=== PATIENT | male | born 1935 | race Caucasian/White ===

== ENCOUNTER 2019-09-06 13:12 | Emergency (ER) | payer OTHER ==
[~2019-09-06] VITALS: Ht 177.8 cm; Wt 83.9 kg
[~2019-09-06 13:12] MED LIST: AMLO5 PO; GALA4 PO; LISI20 PO; METO50 PO; NIAC500 PO; OMEP20ER PO; SIMV80 PO
[2019-09-06 14:19] LABS: BASOPHILS ABSOLUTE AUTO 0.04 K/mm3 (0.00-0.23); BASOPHILS PERCENT AUTO 1 % (0-2); EOSINOPHILS ABSOLUTE AUTO 0.06 K/mm3 (0.00-0.68); EOSINOPHILS PERCENT AUTO 1 % (0-6); Hematocrit 41.2 % (37.0-53.0); Hemoglobin 13.3 g/dL (13.5-17.5); IMMATURE GRAN ABSOLUTE AUTO 0.03 K/mm3 (0.00-0.10); IMMATURE GRAN PERCENT AUTO 0 % (0-1); LYMPHOCYTES ABSOLUTE AUTO 1.79 K/mm3 (0.84-5.20); LYMPHOCYTES PERCENT AUTO 22 % (21-46); MONOCYTES ABSOLUTE AUTO 0.82 K/mm3 (0.16-1.47); MONOCYTES PERCENT AUTO 10 % (4-13); Mean Corpuscular HGB 29.7 pg (26.0-34.0); Mean Corpuscular HGB Conc 32.3 g/dL (31.5-36.5); Mean Corpuscular Volume 92 fL (80-100); Mean Platelet Volume 11.3 fL (9.1-12.4); NEUTROPHILS ABSOLUTE AUTO 5.44 K/mm3 (1.96-9.15); NEUTROPHILS PERCENT AUTO 67 % (41-73); Platelet Count 210 K/mm3 (150-400); RDW Coefficient Variation 13.4 % (11.7-14.2); RDW Standard Deviation 45.4 fL (35.1-46.3); Red Blood Cell Count 4.48 M/mm3 (4.30-5.90); White Blood Cell Count 8.18 K/mm3 (4.00-11.30)
[2019-09-06 14:39] LABS: Alanine Aminotransfer (ALT/SGP 27 U/L (12-78); Albumin, Blood 3.1 g/dL (3.4-5.0); Albumin/Globulin Ratio 1.1 (0.8-1.8); Alk Phos 61 U/L (50-136); Anion Gap 6 mmol/L (6-16); Aspartate Aminotrans (AST/SGOT 13 U/L (12-37); Bilirubin, Total 0.5 mg/dL (0.1-1.0); Blood Urea Nitrogen 20 mg/dL (8-24); Bun/Creatinine Ratio 18.5 (12.0-20.0); CO2, Blood 27 mmol/L (21-32); Calcium, Blood 8.5 mg/dL (8.5-10.1); Chloride, Blood 106 mmol/L (98-108); Creatinine, Blood 1.08 mg/dL (0.60-1.20); Globulin, Blood 2.9 g/dL (2.2-4.0); Glomerular Filtration Rate >60 (60-); Glucose, Blood 152 mg/dL (70-99); Potassium, Blood 3.3 mmol/L (3.5-5.5); Sodium, Blood 139 mmol/L (136-145)
[2019-09-06] MEDS ORDERED: ATOR80 PO (14:58)
[2019-09-06] MEDS ORDERED: HYDCHL25 PO (14:59)
[2019-09-06] MEDS ORDERED: LOSA50 PO (14:59)
== END 2019-09-06 16:53 | disposition home or self-care (01) ==
LOC: ER 13:12
PROVIDERS: Emergency Medicine
DX: R56.9 Unspecified convulsions (principal); I10 Essential (primary) hypertension; K21.9 Gastro-esophageal reflux disease without esophagitis; I25.2 Old myocardial infarction; I25.10 Atherosclerotic heart disease of native coronary artery without angina pectoris; F03.90 Unspecified dementia, unspecified severity, without behavioral disturbance, psychotic disturbance, mood disturbance, and anxiety; Z88.8 Allergy status to other drugs, medicaments and biological substances; Z79.899 Other long term (current) drug therapy
CPT/HCPCS: 70450; 71045; 80053; 85025; 93005; 93010; 99285-25

== ENCOUNTER 2020-02-29 13:28 | Inpatient (IN) | payer OTHER ==
[~2020-02-29] VITALS: Ht 167.6 cm; Wt 72.0 kg
[~2020-02-29 13:28] MED LIST changes: +ATOR80 PO; +CLOTRIMAZOLE TOP; +HYDCHL25 PO; +Hydrochlorothia25 MG PO; +LEVOFLOXACIN750 MG PO; +LOSA50 PO; +LOSARTAN POTASS50 M1 PO; +PROBIOTIC250 MG PO; +TERB250 PO
[2020-02-29 14:22] LABS: BASOPHILS PERCENT AUTO 0 % (0-2); EOSINOPHILS ABSOLUTE AUTO 0.03 K/mm3 (0.00-0.68); EOSINOPHILS PERCENT AUTO 0 % (0-6); Hematocrit 42.2 % (37.0-53.0); Hemoglobin 13.7 g/dL (13.5-17.5); IMMATURE GRAN ABSOLUTE AUTO 0.18 K/mm3 (0.00-0.10); IMMATURE GRAN PERCENT AUTO 1 % (0-1); LYMPHOCYTES ABSOLUTE AUTO 1.09 K/mm3 (0.84-5.20); LYMPHOCYTES PERCENT AUTO 5 % (21-46); MONOCYTES ABSOLUTE AUTO 1.41 K/mm3 (0.16-1.47); MONOCYTES PERCENT AUTO 6 % (4-13); Mean Corpuscular HGB 28.5 pg (26.0-34.0); Mean Corpuscular HGB Conc 32.5 g/dL (31.5-36.5); Mean Corpuscular Volume 88 fL (80-100); Mean Platelet Volume 10.2 fL (9.1-12.4); NEUTROPHILS ABSOLUTE AUTO 20.51 K/mm3 (1.96-9.15); NEUTROPHILS PERCENT AUTO 88 % (41-73); Platelet Count 244 K/mm3 (150-400); RDW Coefficient Variation 15.1 % (11.7-14.2); RDW Standard Deviation 48.8 fL (35.1-46.3); White Blood Cell Count 23.32 K/mm3 (4.00-11.30)
[2020-02-29 14:36] LABS: International Normalized Ratio 1.05; Prothrombin Time Results 11.2 Sec (9.7-11.5)
[2020-02-29 14:47] LABS: Alanine Aminotransfer (ALT/SGP 20 U/L (12-78); Albumin, Blood 2.9 g/dL (3.4-5.0); Albumin/Globulin Ratio 0.6 (0.8-1.8); Alk Phos 114 U/L (50-136); Anion Gap 12 mmol/L (6-16); Aspartate Aminotrans (AST/SGOT 18 U/L (12-37); Bilirubin, Total 1.7 mg/dL (0.1-1.0); Blood Urea Nitrogen 21 mg/dL (8-24); CO2, Blood 24 mmol/L (21-32); Calcium, Blood 9.1 mg/dL (8.5-10.1); Chloride, Blood 101 mmol/L (98-108); Creatinine, Blood 1.05 mg/dL (0.60-1.20); Globulin, Blood 4.6 g/dL (2.2-4.0); Glomerular Filtration Rate >60 (60-); Glucose, Blood 176 mg/dL (70-99); Potassium, Blood 3.4 mmol/L (3.5-5.5); Sodium, Blood 137 mmol/L (136-145); Total Protein, Blood 7.5 g/dL (6.4-8.2)
[2020-02-29 15:32] LABS: Source, Urine Catheter
[2020-02-29] MEDS ORDERED: Razadyne12 MG PO (15:36)
[2020-02-29] MEDS ORDERED: ATOR80 PO (15:36)
[2020-02-29] MEDS ORDERED: TERB250 PO (15:36)
[2020-02-29] MEDS ORDERED: AMLO5 PO (15:36)
[2020-02-29] MEDS ORDERED: TAMS.4ER PO (15:36)
[2020-02-29] MEDS ORDERED: Aspirin EC81 MG PO (15:36)
[2020-02-29 15:45] LABS: Appearance, Urine Cloudy (Clear); Bilirubin, Urine Neg (Neg); Blood, Urine 5+ (Neg); Color, Urine Yellow (P-Yellow); Glucose Qualitative, Urine Neg (Neg); Ketones, Urine Neg (Neg); Leukocyte Esterase, Urine 3+ (Neg); Nitrite, Urine Neg (Neg); Protein, Urine 3+ (Neg); Urobilinogen, Urine NORM (Normal); pH, Urine 6.5 (5.0-8.0)
[2020-02-29 15:56] LABS: Bacteria Many /hpf; Red Blood Cells, Urine TNTC /hpf (0-2); Squamous Epithelial Cells Not Seen /hpf (Few); White Blood Cells, Urine TNTC /hpf (0-5); Yeast/Fungi Urine Few /hpf
[2020-02-29] MEDS ORDERED: HYDCHL25 PO (16:59)
[2020-02-29] MEDS ORDERED: LOSA50 PO (17:05)
--- NOTE | 2020-02-29 18:38 | NUR ---
SPOKE WITH THE ER NURSE THAT STATED THAT HIS DAUGHTER WAS TAPING THE NURSES DOWN IN THE ER. SPOKE WITH DR. SHINE TO MAKE SURE HE WAS NOTIFIED OF THE PATIENT'S CURRENT LACTIC ACID LEVEL. DR. SHINE SAID CONTINUE WITH SEPSIS BOLUS AND MAKE SURE ANTIBIOTICS WERE GIVEN. PATIENT ARRIVED TO THE FLOOR.
[2020-02-29 22:37] LABS: Source, Urine Clean Catch
[2020-02-29 22:58] LABS: Appearance, Urine Cloudy (Clear); Bilirubin, Urine Neg (Neg); Blood, Urine 5+ (Neg); Color, Urine Yellow (P-Yellow); Glucose Qualitative, Urine Neg (Neg); Ketones, Urine Neg (Neg); Leukocyte Esterase, Urine 3+ (Neg); Nitrite, Urine Neg (Neg); Protein, Urine 2+ (Neg); Urobilinogen, Urine NORM (Normal); pH, Urine 6.5 (5.0-8.0)
[2020-02-29 23:06] LABS: Bacteria Many /hpf; Red Blood Cells, Urine TNTC /hpf (0-2); Squamous Epithelial Cells Rare /hpf (Few)
--- NOTE | 2020-03-01 04:22 | NUR ---
SHIFT SUMMARY ASSUMED CARE OF PT AT 1900. PT IS A/OX3, DENIES N/T IN EXTERMITES. HEART SOUNDS DISTANT, DENIES CP. UPON ARRIVAL TO THE SHIFT. PT WAS SHAKING AND HAD AUDIBLE WHEEZES, PT HAD POOR PERFUSION AND O2 READING WAS AT 85% ON 5L. PT ORAL TEMP REMAINED STABLE DURING THIS TIME. THE PT BEGAN TO CALM DOWN, RESPIRATIONS DECREASED AND SATURATIONS WERE MAINTAINED AT 95%, PT WAS DECREASED TO 2LNC AND THEN DOWN TO RA DUE TO PT TAKING OFF O2. DURING THE NIGHT, PT DESATURATED AGAIN, DAUGHTER STATED THAT PT HAS A HX OF SLEEP APNEA, NONCOMPLIANT WITH CPAP. 1L N WAS ADMINISTERED AND MAINTAINED T/O THE NIGHT. PT DYSON WAS CHANGED, THERE WAS ABOUT 30CC OF ADA RED BLOOD AND THEN THE URINE RAN CLOUDY AND YELLOW, AFTER 1HR PT HAD DRAINED 1500 FROM IT. UA SENT AND CULTURE INDICATED. BLOOD CULTURE CAME BACK POSITIVE FOR GRAM NEG BACCILI, PHARMACY INDICATED THAT PT WAS COVERED ON CURRENT ABX TREATMENT. CHARGE NURSE NOTIFIED AND HOSPITALIST NOTIFIED AND AGREED WITH TREATMENT FOR NOW. DAUGHTER STAYED WITH PT DURING THE NIGHT. PT SLEPT T/O THE NIGHT. CALL LIGHT IN REACH, BED IN LOWEST POSITION.
[2020-03-01 04:55] LABS: BASOPHILS ABSOLUTE AUTO 0.08 K/mm3 (0.00-0.23); BASOPHILS PERCENT AUTO 0 % (0-2); EOSINOPHILS ABSOLUTE AUTO 0.02 K/mm3 (0.00-0.68); EOSINOPHILS PERCENT AUTO 0 % (0-6); Hematocrit 35.2 % (37.0-53.0); IMMATURE GRAN ABSOLUTE AUTO 0.23 K/mm3 (0.00-0.10); IMMATURE GRAN PERCENT AUTO 1 % (0-1); LYMPHOCYTES PERCENT AUTO 7 % (21-46); MONOCYTES ABSOLUTE AUTO 2.32 K/mm3 (0.16-1.47); MONOCYTES PERCENT AUTO 9 % (4-13); Mean Corpuscular HGB Conc 31.3 g/dL (31.5-36.5); Mean Corpuscular Volume 90 fL (80-100); Mean Platelet Volume 10.8 fL (9.1-12.4); NEUTROPHILS ABSOLUTE AUTO 22.49 K/mm3 (1.96-9.15); NEUTROPHILS PERCENT AUTO 83 % (41-73); Platelet Count 182 K/mm3 (150-400); RDW Coefficient Variation 15.4 % (11.7-14.2); RDW Standard Deviation 51.3 fL (35.1-46.3); Red Blood Cell Count 3.93 M/mm3 (4.30-5.90); White Blood Cell Count 27.04 K/mm3 (4.00-11.30)
[2020-03-01 05:15] LABS: Albumin/Globulin Ratio 0.5 (0.8-1.8); Bilirubin, Total 1.1 mg/dL (0.1-1.0); Bun/Creatinine Ratio 18.4 (12.0-20.0); Calcium, Blood 7.7 mg/dL (8.5-10.1); Creatinine, Blood 1.25 mg/dL (0.60-1.20); Globulin, Blood 3.7 g/dL (2.2-4.0); Potassium, Blood 3.7 mmol/L (3.5-5.5); Total Protein, Blood 5.7 g/dL (6.4-8.2)
--- NOTE | 2020-03-01 06:04 | NUR ---
PCU TRANSFER PT MORNING BP WAS 93 SYSTOLIC, AFTER RECHECK BP DROPPED TO 83 SYSTOLIC. PT PULSE HAS ALSO DECREASED FROM 130 SYSTOLIC TO THE 70'S T/O THE NIGHT. PT HAS BEEN SWEATING DURING THE NIGHT. PT MENTATION HAS STAYED THE SAME. CALLED HOSPITALIST. HOSPITALIST ORDERED 1L BOILUS, A REPEAT LACTIC AND TO TRANSFER PT TO THE PCU. REPORT GIVEN AT 0619 AND PT WAS TRANSFERED DURING THIS TIME. DAUGHTER WITH PT AT BEDSIDE AND EDUCATED ABOUT WHAT WAS GOING ON. DAUGHTER IS TEARFUL BUT UNDERSTANDING.
--- NOTE | 2020-03-01 06:27 | NUR ---
RECEIVED FROM MED FLOOR VIA BED. TO PCU 2. AWAKE AND SOME CONFUSION. REASSURED AND REORIENTED. CONVERSIVE W/ FAMILY SUNI STAFF. RESP EASY RGULAR. LUNGS CLEAR . DENIES PAIN. AWARE OF NAME AND AND FAMILY . LAB CALLS W/ CRITICAL VALUE , WILL DISCUSS W/ DAY RN. FLUID BOLUS RUNS AT 999, BP 99/58 W/ MAP OF 72. [address] PLACE ON TELE. AFEBRILE.
--- NOTE | 2020-03-01 08:16 | NUR ---
ASSUMED CARE AT 0700, REPORT FROM LOLA. RESTING IN HIGH SUPINE POSITION IN BED. A/A/OX4, HARD OF HEARING. 02 AT 1L NC, PT STATES DOES NOT WEAR HOME O2, SATS 100%, DC'D O2 AT THIS TIME, WILL CONTINUE TO MONITOR. PLAN OF CARE REVIWED FOR DAY. IV NS INFUSING AT 125ML/HR. CHRONIC DYSON IN PLACE, DRAINING CLEAR YELLOW URINE TO GRAVITY BAG. GRANDAUGHTER AT BEDSIDE. BREAKFAST TRAY GIVEN. WILL CONTINUE TO MONITOR.
[2020-03-01 12:20] LABS: Vancomycin, Random 7.7 ug/mL
--- NOTE | 2020-03-01 15:56 | NUR ---
REPORT TO MEDICAL FLOOR RN FOR IN HOUSE TRANSFER.
--- NOTE | 2020-03-01 15:59 | NUR ---
PT TRANSFERED FROM PCU VIA BED, PT IS ALERT TO SELF AND FAMILY. PT HAS SL IN LEFT WRIST. PT HAS CHRONIC DYSON IN PLACE THAT WAS CHANGED IN ER PRIOR TO ADMISSION. PT IS ON RA AND KIANA SOB, BIOX 98%. PT KIANA PAIN. PT TOLORATING FOOD WELL. PT'S LUNGS ARE CLEAR, BOWEL TONES HYPERACTIVE IN ALL FOR QUADRANTS, HR SOUNDS REGULAR. PT HAS CALL LIGHT WITH IN REACH AND WILL COUNTINE TO MONITOR AND REPORT TO NOC RN.
--- NOTE | 2020-03-01 23:52 | NUR ---
PHYSICIAN NOTIFIED- DURING EVENING BEDSIDE REPORT WITH DAY SHIFT NURSE REX VELIZ. PT. MENTIONED HE WOULD NOT WANT TO BE RESUSCITATED IN THE EVENT IF HE WERE TO STOP BREATHING. DAY JOSE ALFREDO GOODMAN AND THIS NURSE DISCUSSED AND VERIFIED WITH PT. CODE STATUS AND THE MEANING OF BECOMING A DNR. PT. VERBALIZED UNDERSTANDING, STEP DAUGHTER AT THE BEDSIDE AGREED TO PT. WISHES AT THAT TIME. PT. NOTED TO HAVE SOME CONFUSION. ALERT TO SELF NOT ORIENTED TO PLACE OR DATE. PT. DIRECTABLE BUT APPEARS TO HAVE POOR COMPREHENSION. PT. HAS BEEN ATTEMPTING TO GET OOB SEVERAL TIMES THIS EVENING. CONFUSED, BELIEVES HE IS IN [place]. DISCUSSED CONCERN WITH COLLARETTE SEPARATOR CHANDRA. NOTIFIED HOSPITALIST DR. GARCIA, INSTRUCTED THIS NURSE TO REPORT TO DAY SHIFT RN AND AM PHYSICIAN TO ADDRESS CODE STATUS.
[2020-03-02 04:27] LABS: BASOPHILS ABSOLUTE AUTO 0.05 K/mm3 (0.00-0.23); BASOPHILS PERCENT AUTO 0 % (0-2); EOSINOPHILS ABSOLUTE AUTO 0.22 K/mm3 (0.00-0.68); EOSINOPHILS PERCENT AUTO 1 % (0-6); Hematocrit 31.9 % (37.0-53.0); Hemoglobin 10.2 g/dL (13.5-17.5); IMMATURE GRAN ABSOLUTE AUTO 0.08 K/mm3 (0.00-0.10); IMMATURE GRAN PERCENT AUTO 1 % (0-1); LYMPHOCYTES ABSOLUTE AUTO 1.76 K/mm3 (0.84-5.20); LYMPHOCYTES PERCENT AUTO 12 % (21-46); MONOCYTES ABSOLUTE AUTO 1.37 K/mm3 (0.16-1.47); MONOCYTES PERCENT AUTO 9 % (4-13); Mean Corpuscular HGB 28.3 pg (26.0-34.0); Mean Corpuscular Volume 88 fL (80-100); Mean Platelet Volume 11.2 fL (9.1-12.4); NEUTROPHILS ABSOLUTE AUTO 11.84 K/mm3 (1.96-9.15); NEUTROPHILS PERCENT AUTO 77 % (41-73); Platelet Count 147 K/mm3 (150-400); RDW Coefficient Variation 14.8 % (11.7-14.2); RDW Standard Deviation 48.4 fL (35.1-46.3); Red Blood Cell Count 3.61 M/mm3 (4.30-5.90); White Blood Cell Count 15.32 K/mm3 (4.00-11.30)
[2020-03-02 04:46] LABS: Anion Gap 5 mmol/L (6-16); Blood Urea Nitrogen 19 mg/dL (8-24); Bun/Creatinine Ratio 21.2 (12.0-20.0); CO2, Blood 27 mmol/L (21-32); Calcium, Blood 8.1 mg/dL (8.5-10.1); Chloride, Blood 110 mmol/L (98-108); Glomerular Filtration Rate >60 (60-); Glucose, Blood 112 mg/dL (70-99); Potassium, Blood 3.3 mmol/L (3.5-5.5); Sodium, Blood 142 mmol/L (136-145)
--- NOTE | 2020-03-02 04:56 | NUR ---
SHIFT SUMMARY- PT. PLEASANTLY CONFUSED THIS SHIFT. IMPULSIVE ATTEMPTING TO GET OOB SEVERAL TIMES T/O THE NIGHT UNAWARE OF HIS SURROUNDINGS. ALSO UNSTEADY WITH SOME WEAKNESS. THIS NURSE AND SCHOOL PSYCHOLOGY SPECIALIST ABLE TO REDIRECT PT. PRN AND ASSIST BACK INTO BED W/O DIFFICULTY. PT. HAD 1 BM IN ATTENDS. CHRONIC DYSON CATHETER PATENT AND DRAINING. LATER DURING THE NIGHT PT. C/O NOT BEING ABLE TO FALL ASLEEP. NOTIFIED HOSPITALIST DR. NASCIMENTO. RECEIVED ORDER FOR MELATONIN 5MG PRN @BEDTIME. ADMINISTERED PER ORDER. PT. SLEPT THE REMAINDER OF THE NIGHT. NO APPARENT DISTRESS NOTED. VSS, NO OTHER COMPLAINTS THIS SHIFT. CALL LIGHT WITHIN REACH, SIDE RAILS UPX2, AND BED ALARM ON FOR SAFETY. WILL CONT TO MONITOR.
[2020-03-02 12:18] LABS: Vancomycin, Random 9.2 ug/mL
--- NOTE | 2020-03-02 19:00 | NUR ---
SUMMARY- PT A/O TO PLACE, SELF, FAMILY. STATES PRESIDENT MELENDEZ AND DOESN'T KNOW EXACT DATE. KNOWS TOWN AND HOSP NAME. FAMILY AT BEDSIDE MOST OF THE SHIFT. PT ON BEDREST, ADJUSTS WEIGHT IN BED. HAS DYSON FOR RETENTION. IVF INFUSING. TOLERATING FOOD AND FLUIDS. HAD BM THIS PM. VSS, AFIBRILE, 99% ROOM AIR. ORAL KCL REPLACEMENT FOR LOW LEVELS. PLAN FOR IV ABX. WILL REPORT TO PÉREZ VELIZ.
[2020-03-03 04:53] LABS: BASOPHILS ABSOLUTE AUTO 0.03 K/mm3 (0.00-0.23); BASOPHILS PERCENT AUTO 0 % (0-2); EOSINOPHILS ABSOLUTE AUTO 0.14 K/mm3 (0.00-0.68); EOSINOPHILS PERCENT AUTO 1 % (0-6); Hematocrit 35.2 % (37.0-53.0); Hemoglobin 11.2 g/dL (13.5-17.5); IMMATURE GRAN ABSOLUTE AUTO 0.06 K/mm3 (0.00-0.10); IMMATURE GRAN PERCENT AUTO 1 % (0-1); LYMPHOCYTES ABSOLUTE AUTO 2.15 K/mm3 (0.84-5.20); LYMPHOCYTES PERCENT AUTO 20 % (21-46); MONOCYTES ABSOLUTE AUTO 0.88 K/mm3 (0.16-1.47); MONOCYTES PERCENT AUTO 8 % (4-13); Mean Corpuscular HGB 27.9 pg (26.0-34.0); Mean Corpuscular HGB Conc 31.8 g/dL (31.5-36.5); Mean Corpuscular Volume 88 fL (80-100); Mean Platelet Volume 11.6 fL (9.1-12.4); NEUTROPHILS ABSOLUTE AUTO 7.78 K/mm3 (1.96-9.15); NEUTROPHILS PERCENT AUTO 70 % (41-73); Platelet Count 159 K/mm3 (150-400); RDW Coefficient Variation 14.5 % (11.7-14.2); RDW Standard Deviation 46.8 fL (35.1-46.3); Red Blood Cell Count 4.01 M/mm3 (4.30-5.90); White Blood Cell Count 11.04 K/mm3 (4.00-11.30)
[2020-03-03 05:15] LABS: Anion Gap 7 mmol/L (6-16); Blood Urea Nitrogen 12 mg/dL (8-24); Bun/Creatinine Ratio 13.9 (12.0-20.0); CO2, Blood 28 mmol/L (21-32); Calcium, Blood 9.2 mg/dL (8.5-10.1); Chloride, Blood 106 mmol/L (98-108); Creatinine, Blood 0.86 mg/dL (0.60-1.20); Glomerular Filtration Rate >60 (60-); Glucose, Blood 106 mg/dL (70-99); Potassium, Blood 3.3 mmol/L (3.5-5.5); Sodium, Blood 141 mmol/L (136-145)
--- NOTE | 2020-03-03 06:46 | NUR ---
SHIFT SUMMARY PT IS AN 84 Y/O MALE, ADMITTED FOR SEPSIS. HE IS A&O X SELF AND LOCATION ONLY, 2PA UP AND CHRONICALLY CHAIRBOUND PER PT'S DAUGHTER. NO COMPLAINTS OF ACUTE PAIN, NAUSEA OR SOB. VITAL SIGNS STABLE. PT HAS DYSON IN PLACE, PATENT AND DRAINING. HE IS RECEIVING NS @ 125 ML/HR. PT ACCIDENTALLY PULLED OUT IV, WHICH WAS REPLACED IN THE L FOREARM. NO OTHER ACUTE CHANGES IN PT CONDITION NOTED DURING THE NIGHT. WILL CONTINUE TO MONITOR AND TREAT PER EMAR UNTIL HAND OFF TO DAY SHIFT RN.
--- NOTE | 2020-03-03 11:15 | NUR ---
Initial palliative care consult: Sabino is an 84 year old with a history of CAD, dementia, BPH, bladder cancer. He is . He lives with his step dtr, Hermelinda, in [place]. He has admitted on 02/29/20 with fever and chills. He has a chronic indwelling lora. Sabino reports he is feeling much better. He denies any symptoms. He would like to go home today. He reports he has caregivers 40 hours/weel (M-F) provided by [facility] which is paid for by the [facility]. His caregiver cooks and cleans for him. He reports that he is able to do his own ADLs. Hermelinda cooks for him on the weekends, manages his medications and drives him to appointments. He denies having a cane or walker at home. He reports he has fallen a few times without any injuries. He states that there are grab bars in his bathroom and 3-4 steps on the outside of his house to get inside. He repeats himself at times and states that he has difficulty remembering things. He states he doesn't have any AD or living will that he knows of. Called the [place] POLST registry and he is not in their database. Sent a request to the [facility] department to obtain any AD/POLST that they may have on file. Gabriela Reina states that Eleonora Powers NP is no longer his PCP at the [facility]. [facility]riela states [facility] and will [facility] his P[facility] in the EMR once she has the name of his current PCP. Will plan to speak with Hermelinda re: pt code status, AD/POLST forms as Sabino is unable to make any decisions on his own due to his dementia and forgetfulness. PC to continue to work with pt and family to determine their wishes for his code status.
[2020-03-03] MEDS ORDERED: ACET325 PO (11:26)
[2020-03-03] MEDS ORDERED: ALBU3IS INH (11:28)
[2020-03-03] MEDS ORDERED: BISA10S PR (11:29)
[2020-03-03] MEDS ORDERED: FAMO20 PO (11:30)
[2020-03-03] MEDS ORDERED: CALCIUM CARBON500 M1 PO (11:30)
[2020-03-03] MEDS ORDERED: MELATONIN5 M1 PO (11:31)
[2020-03-03] MEDS ORDERED: LEVO750 PO (11:31)
[2020-03-03] MEDS ORDERED: ONDA4 PO (11:32)
[2020-03-03] MEDS ORDERED: POTCHL20ER PO (11:32)
[2020-03-03] MEDS ORDERED: FUNGOID-D113 GM TOP (11:34)
[2020-03-03] MEDS ORDERED: VISBIOME PO (11:43)
--- NOTE | 2020-03-03 12:57 | NUR ---
SHIFT SUMMARY/DC PT HAS HAD NO ACUTE CHANGES THIS SHIFT, FAMILY AT BEDSIDE UNTIL DC, REVIEWED DC INSTRUCTIONS W/STEP DAUGHTER (INDIGO), WHO VERBALIZED UNDERSTANDING, IV REMOVED, [facility] TO [facility], HOWEVER, [facility] SCHED SYSTEM WAS DOWN SO [facility] IS GOING TO FOLLOW UP W/FAMILY TI SCHED FU APPT, INDIGO AWARE AND STATED SHE WILL ALSO TRY TO CALL THEM AGAIN, PT TRANSPORTED OUT VIA W/C TO DC IN PRIVATE VEHICLE @9470.
== END 2020-03-03 12:42 | disposition home health service (06) | DRG 698 ==
LOC: ER 13:28 → MEDS 16:24 → PCU 03-01 06:11 → MEDS 03-01 15:31 → ENPENDDIS 03-03 11:12 → MEDS 03-03 12:42
PROVIDERS: Emergency Medicine; Nurse Practitioner Acute Care; Pharmacist; ADMIT Family Medicine
DX: T83.511A Infection and inflammatory reaction due to indwelling urethral catheter, initial encounter (principal); N17.0 Acute kidney failure with tubular necrosis; R65.20 Severe sepsis without septic shock; A41.81 Sepsis due to Enterococcus; N12 Tubulo-interstitial nephritis, not specified as acute or chronic; E78.5 Hyperlipidemia, unspecified; E87.6 Hypokalemia; F03.90 Unspecified dementia, unspecified severity, without behavioral disturbance, psychotic disturbance, mood disturbance, and anxiety; I10 Essential (primary) hypertension; I25.10 Atherosclerotic heart disease of native coronary artery without angina pectoris; K21.9 Gastro-esophageal reflux disease without esophagitis; N40.1 Benign prostatic hyperplasia with lower urinary tract symptoms; Z85.51 Personal history of malignant neoplasm of bladder; Z87.891 Personal history of nicotine dependence; Z66 Do not resuscitate
CPT/HCPCS: 36415; 71045; 80048; 80053; 80202; 81001; 83605; 85025; 85610; 85730; 87040; 87077; 87086; 87186; 93005; 93010; 94762; 96361; 96365; 96372-59; 96375; 96376; 99285-25; A9270; A9270-GY; J0696; J1650; J1956; J2060; J2543; J3370; J7030; J7120

== ENCOUNTER 2020-04-03 19:47 | Emergency (ER) | payer OTHER ==
[~2020-04-03] VITALS: Ht 165.1 cm; Wt 70.3 kg
[~2020-04-03 19:47] MED LIST changes: +ACET325 PO; +ALBU3IS INH; +Aspirin EC81 MG PO; +BISA10S PR; +CALCIUM CARBON500 M1 PO; +FAMO20 PO; +FUNGOID-D113 GM TOP; +LEVO750 PO; +MELATONIN5 M1 PO; +ONDA4 PO; +POTCHL20ER PO; +Razadyne12 MG PO; +TAMS.4ER PO; +VISBIOME PO
[2020-04-03 21:15] LABS: Source, Urine Catheter
[2020-04-03 21:20] LABS: Appearance, Urine Turbid (Clear); Bilirubin, Urine Neg (Neg); Blood, Urine 5+ (Neg); Color, Urine Yellow (P-Yellow); Glucose Qualitative, Urine Neg (Neg); Ketones, Urine Neg (Neg); Leukocyte Esterase, Urine 3+ (Neg); Nitrite, Urine Pos (Neg); Protein, Urine 3+ (Neg); Specific Gravity, Urine 1.015 (1.003-1.022); Urobilinogen, Urine NORM (Normal)
[2020-04-03 21:38] LABS: Bacteria Many /hpf; Squamous Epithelial Cells Not Seen /hpf (Few); White Blood Cells, Urine TNTC /hpf (0-5)
[2020-04-03] MEDS ORDERED: CIPR500 PO (22:07)
== END 2020-04-03 22:40 | disposition home or self-care (01) ==
LOC: ER 19:47
PROVIDERS: Emergency Medicine
DX: T83.098A Other mechanical complication of other urinary catheter, initial encounter (principal); N39.0 Urinary tract infection, site not specified; Z79.82 Long term (current) use of aspirin; Z79.899 Other long term (current) drug therapy
CPT/HCPCS: 51702; 81001; 87077; 87086; 87186; 99283

== ENCOUNTER 2020-08-13 19:03 | Inpatient (IN) | payer OTHER ==
[~2020-08-13] VITALS: Ht 162.6 cm; Wt 63.7 kg
[~2020-08-13 19:03] MED LIST changes: +CIPR500 PO
[2020-08-13 20:53] LABS: BASOPHILS ABSOLUTE AUTO 0.02 K/mm3 (0.00-0.23); BASOPHILS PERCENT AUTO 0 % (0-2); EOSINOPHILS PERCENT AUTO 0 % (0-6); Hematocrit 47.9 % (37.0-53.0); IMMATURE GRAN ABSOLUTE AUTO 0.07 K/mm3 (0.00-0.10); IMMATURE GRAN PERCENT AUTO 1 % (0-1); LYMPHOCYTES ABSOLUTE AUTO 1.01 K/mm3 (0.84-5.20); LYMPHOCYTES PERCENT AUTO 10 % (21-46); MONOCYTES PERCENT AUTO 7 % (4-13); Mean Corpuscular HGB Conc 33.4 g/dL (31.5-36.5); Mean Corpuscular Volume 84 fL (80-100); Mean Platelet Volume 12.3 fL (9.1-12.4); NEUTROPHILS ABSOLUTE AUTO 8.55 K/mm3 (1.96-9.15); NEUTROPHILS PERCENT AUTO 83 % (41-73); Platelet Count 171 K/mm3 (150-400); RDW Coefficient Variation 14.7 % (11.7-14.2); RDW Standard Deviation 44.9 fL (35.1-46.3); Red Blood Cell Count 5.72 M/mm3 (4.30-5.90); White Blood Cell Count 10.35 K/mm3 (4.00-11.30)
[2020-08-13 21:06] LABS: Source, Urine Clean Catch
[2020-08-13 21:09] LABS: Bilirubin, Urine Neg (Neg); Blood, Urine 5+ (Neg); Glucose Qualitative, Urine Neg (Neg); Ketones, Urine 1+ (Neg); Leukocyte Esterase, Urine 3+ (Neg); Nitrite, Urine Neg (Neg); Protein, Urine 3+ (Neg); Specific Gravity, Urine 1.015 (1.003-1.022); Urobilinogen, Urine NORM (Normal)
[2020-08-13 21:15] LABS: Alanine Aminotransfer (ALT/SGP 52 U/L (12-78); Albumin, Blood 2.8 g/dL (3.4-5.0); Albumin/Globulin Ratio 0.6 (0.8-1.8); Alk Phos 83 U/L (50-136); Anion Gap 5 mmol/L (6-16); Aspartate Aminotrans (AST/SGOT 64 U/L (12-37); Bilirubin, Total 0.8 mg/dL (0.1-1.0); Blood Urea Nitrogen 22 mg/dL (8-24); Bun/Creatinine Ratio 19.8 (12.0-20.0); CO2, Blood 32 mmol/L (21-32); Calcium, Blood 8.8 mg/dL (8.5-10.1); Chloride, Blood 97 mmol/L (98-108); Creatinine, Blood 1.11 mg/dL (0.60-1.20); Globulin, Blood 4.7 g/dL (2.2-4.0); Glomerular Filtration Rate >60 (60-); Glucose, Blood 131 mg/dL (70-99); Potassium, Blood 3.1 mmol/L (3.5-5.5); Sodium, Blood 134 mmol/L (136-145); Total Protein, Blood 7.5 g/dL (6.4-8.2); Troponin I 0.024 ng/mL (0.000-0.040)
[2020-08-13 21:24] LABS: Amorphous Light (0-Heavy); Appearance, Urine Cloudy (Clear); Bacteria Many /hpf; Color, Urine Yellow (P-Yellow); Squamous Epithelial Cells Not Seen /hpf (Few); White Blood Cells, Urine TNTC /hpf (0-5)
[2020-08-13] MEDS ORDERED: AZIT250 PO (23:42)
[2020-08-14 06:40] LABS: BASOPHILS ABSOLUTE AUTO 0.01 K/mm3 (0.00-0.23); BASOPHILS PERCENT AUTO 0 % (0-2); EOSINOPHILS PERCENT AUTO 0 % (0-6); Hematocrit 47.9 % (37.0-53.0); IMMATURE GRAN ABSOLUTE AUTO 0.07 K/mm3 (0.00-0.10); IMMATURE GRAN PERCENT AUTO 1 % (0-1); LYMPHOCYTES ABSOLUTE AUTO 0.94 K/mm3 (0.84-5.20); LYMPHOCYTES PERCENT AUTO 10 % (21-46); MONOCYTES ABSOLUTE AUTO 0.71 K/mm3 (0.16-1.47); MONOCYTES PERCENT AUTO 8 % (4-13); Mean Corpuscular HGB 28.2 pg (26.0-34.0); Mean Corpuscular HGB Conc 33.4 g/dL (31.5-36.5); Mean Corpuscular Volume 84 fL (80-100); Mean Platelet Volume 12.2 fL (9.1-12.4); NEUTROPHILS ABSOLUTE AUTO 7.71 K/mm3 (1.96-9.15); NEUTROPHILS PERCENT AUTO 82 % (41-73); Platelet Count 167 K/mm3 (150-400); RDW Coefficient Variation 14.8 % (11.7-14.2); RDW Standard Deviation 45.7 fL (35.1-46.3); Red Blood Cell Count 5.68 M/mm3 (4.30-5.90); White Blood Cell Count 9.44 K/mm3 (4.00-11.30)
[2020-08-14 07:04] LABS: Anion Gap 6 mmol/L (6-16); Blood Urea Nitrogen 26 mg/dL (8-24); Bun/Creatinine Ratio 24.1 (12.0-20.0); CO2, Blood 31 mmol/L (21-32); Chloride, Blood 99 mmol/L (98-108); Creatinine, Blood 1.08 mg/dL (0.60-1.20); Glomerular Filtration Rate >60 (60-); Glucose, Blood 117 mg/dL (70-99); Potassium, Blood 3.9 mmol/L (3.5-5.5); Sodium, Blood 136 mmol/L (136-145); Troponin I 0.431 ng/mL (0.000-0.040)
--- NOTE | 2020-08-14 07:48 | NUR ---
SHIFT SUMMARY RECIEVED REPORT FROM LIZA VELIZ, ED @ 9204. ARRIVED TO MEDICAL UNIT VIA STRETCHER. TRANSFER ASSISTANCE NEEDED. HAS BECOME VERY WEAKENED SINCE ARRIVAL. ORIENTED TO ROOM AND CALL SYSTEM. AWARE TO USE RED BUTTON TO GET HELP; IF REQUIRED. ALERT, ABLE TO MAKE NEEDS KNOWN. CONFUSED/FORGETFUL AT TIMES. [place]. COOPERATIVE WITH CARE. VSS/AFEBRILE. RECIEVED ABX AND DECADRON PER ORDERS. APPEARED TO REST MUCH OF TIME SINCE ARRIVAL. NO ACUTE NEEDS NOTED. BED REMAINED IN LOWEST POSITION; ALARM ON. CALL LIGHT AND BELONGINGS WITHIN REACH. CONTINUE WITH CURRENT PLAN OF CARE. REPORT GIVEN TO ONCLANE RN.
--- NOTE | 2020-08-14 18:47 | NUR ---
SHFIT SUMMARY ASSUMED CARE AT 1500 FROM JOSE ALFREDO ADDISON. PT WORKED WITH PHYSICAL THERAPY SINCE. LARGE SOFT/LIQUID BM TODAY TOO. INCONT OF BOWEL & BLADDER. NO ACUTE CHANGES FROM PRIOR RNS ASSESSMENT. PT UP IN CHAIR. POOR APPETITE. OFFERED & ACCEPTED A VANILLA INSURE FOR NUTRITION. VS REVIEWED. PT REQUESTED TO STAY UP IN CHAIR FOR NOW AND HAS CALL LIGHT IN REACH. BLUETOOTH CONT. PULSE OX IN PLACE. O2 SATS REMAINING ABOVE 95% ON RA.
[2020-08-15 04:49] LABS: BASOPHILS ABSOLUTE AUTO 0.01 K/mm3 (0.00-0.23); BASOPHILS PERCENT AUTO 0 % (0-2); EOSINOPHILS PERCENT AUTO 0 % (0-6); Hematocrit 44.3 % (37.0-53.0); Hemoglobin 15.1 g/dL (13.5-17.5); IMMATURE GRAN ABSOLUTE AUTO 0.11 K/mm3 (0.00-0.10); IMMATURE GRAN PERCENT AUTO 1 % (0-1); LYMPHOCYTES ABSOLUTE AUTO 1.16 K/mm3 (0.84-5.20); LYMPHOCYTES PERCENT AUTO 7 % (21-46); MONOCYTES ABSOLUTE AUTO 1.13 K/mm3 (0.16-1.47); MONOCYTES PERCENT AUTO 7 % (4-13); Mean Corpuscular HGB 27.6 pg (26.0-34.0); Mean Corpuscular HGB Conc 34.1 g/dL (31.5-36.5); Mean Corpuscular Volume 81 fL (80-100); Mean Platelet Volume 12.3 fL (9.1-12.4); NEUTROPHILS ABSOLUTE AUTO 13.38 K/mm3 (1.96-9.15); NEUTROPHILS PERCENT AUTO 85 % (41-73); Platelet Count 186 K/mm3 (150-400); RDW Coefficient Variation 14.6 % (11.7-14.2); RDW Standard Deviation 43.2 fL (35.1-46.3); Red Blood Cell Count 5.47 M/mm3 (4.30-5.90); White Blood Cell Count 15.79 K/mm3 (4.00-11.30)
--- NOTE | 2020-08-15 05:03 | NUR ---
SNOW SHOVELER SUMMARY NO ACUTE CHANGES THIS SHIFT. PT AAOX2-3, SLIGHTLY CONFUSED/FORGETFUL AT TIMES BUT IS EASILY REDIRECTED. REMAINS ON ROOM AIR WITH O2 SATS LOW TO MID 90'S. PT RESPIRATORY RATE SLIGHTLY ELEVATED AT TIMES WHILE SLEEPING BUT IS NORMAL WHILE AWAKE AND CONVERSING WITH STAFF. INCONTINENT OF BLADDER TONIGHT, REQUIRES 2 ASSIST WITH ATTENDS CHANGES. VSS, WILL CONTINUE TO MONITOR.
[2020-08-15 05:27] LABS: Alanine Aminotransfer (ALT/SGP 81 U/L (12-78); Albumin, Blood 2.4 g/dL (3.4-5.0); Albumin/Globulin Ratio 0.5 (0.8-1.8); Alk Phos 74 U/L (50-136); Anion Gap 6 mmol/L (6-16); Aspartate Aminotrans (AST/SGOT 112 U/L (12-37); Bilirubin, Total 0.8 mg/dL (0.1-1.0); Blood Urea Nitrogen 46 mg/dL (8-24); Bun/Creatinine Ratio 41.1 (12.0-20.0); CO2, Blood 27 mmol/L (21-32); Chloride, Blood 102 mmol/L (98-108); Creatinine, Blood 1.12 mg/dL (0.60-1.20); Globulin, Blood 4.7 g/dL (2.2-4.0); Glomerular Filtration Rate >60 (60-); Glucose, Blood 135 mg/dL (70-99); Magnesium, Blood 2.2 mg/dL (1.6-2.4); Phosphorus, Blood 1.7 mg/dL (2.5-4.9); Potassium, Blood 3.8 mmol/L (3.5-5.5); Sodium, Blood 135 mmol/L (136-145); Total Protein, Blood 7.1 g/dL (6.4-8.2)
[2020-08-15 07:51] LABS: International Normalized Ratio 1.02; Prothrombin Time Results 10.9 Sec (9.7-11.5)
--- NOTE | 2020-08-15 10:30 | NUR ---
Medical POA - Hermelinda Griffith Kenn [phone]. Other family contacts are: Robin Arreguin [phone] and niece- Maria Guadalupe [place] [phone] Summary of case conferences with pt's RN and Dr Arevalo and phone conversations with multiple family members throughout am. I was paged by pt's RN and given report of events during the night, her assessment, current status and concerns with request to contact family re: goals of care due to pt's dementia. Pt appears to have had a NSTEMI during the night. He is less lethargic than yesterday and conversant, although cont to be very confused per RN. He is not reporting pain, denies CP and is not exhibiting any nonverbal indicators of distress/discomfort per bedside RN. Cardiac workup and testing has proceeded t/o am. I spoke with Dr Arevalo to confirm current status and plan of care. At 's request, I contacted Hermelinda griffith, and fully updated her on events and treatment being provided, discussed options for care and goals of care. Hermelinda would like me to speak with pt's Brother Robin, which I did, at length, as well as pt's niece, Maria Guadalupe. All family members report that pt is historically very stoic and does not report pain and that he has been "lethargic", low energy for a long time, ambulatory in the home using antony for support and has been incontinent, with hx of urinary retention and UTIs. Pt requied assist with ADL's such as dressing, meal prep, bathing but he was generally happy and in no distress as long as he could lay in bed and watch TV. They would like infections treated and medical management of NSTEMI, which is consisitent with current treatment. Hermelinda is MPOA and rest of family is very supportive of her and pt. Pt is clearly loved and adored by family members. Hermelinda has provided care for pt and also cared for her mom, with hospice support prior to her approx 18 months ago. Hermelinda stated hospice was very helpful and if hospice is decided upon for Tuan, she would like [facility] again. Pt's brother states he is in favor of comfort care and hospice but agrees that Hermelinda is decision maker. Pt made himself a DNR many years ago, per Hermelinda and would not want any heroic or invasive measures at this time. After conversation with gladis, I called report to on our conversation. Verbal order received for morphine 1-2 mg q4 hours prn CP or pain and that was entered. Report given to pt's RN also. Echocardiogram in progress when I called to report. Gladis will call me if family would like direction of care to change from medical management to comfort care. They feel Hospice support would be helpful if/when pt medically stable for d/c home. [facility] will cont to follow for support and advanced care planning, s/s management if needed. Also spoke with OT to update on all of above later in am.
--- NOTE | 2020-08-15 17:16 | NUR ---
SHIFT SUMMARY- PT O2 SATS HAVE BEEN MAINTAINING ON ROOM AIR GREATER THAN 90%. PT HAS ADVANCED DEMENTIA AND IS A POOR HISTORIAN. SPOKE TO PT DAUGHTER WHO IS AT [facility] AND IS ALSO COVID POSSITIVE. SHE HAS BEEN UPDATED ON THE PT CONDITION. PT HAD A CRITICALLY HIGH TROPONIN LAST NIGHT AT 12.0. CARDIOLOGY WAS CONSULTED AND MEDICAL MANAGEMENT WAS CHOSEN BY THE FAMILY. PT HAS BEEN MORE ALERT THIS AFTERNOON WHEN COMPARED TO YESTERDAY, AND EVEN THIS MORNING. PT CONTINUES TO DENY ANY PAIN, PER FAMILY HE WILL NEVER ADMIT TO PAIN. NONVERBAL CUES FOR PAIN WERE NOT WITNESSED. IV WENT BAD THIS MORNING AND A PG WAS PLACED IN THE LEFT UPPER ARM AND IS RUNNING IV HEPARIN. PER PHA ALEX THE PT CEFTRIAXONE IS OK TO RUN WITH THE HEPARIN, HOWEVER THE REMDESEVIR IS NOT NEW IV PLACED IN THE LEFT WRIST BY INSPECTOR ELEVATORS. PT RECIEVED FIRST DOSE OF REMDESEVIR TODAY. PT ON CONT BI-OX, BED ALARM FOR SAFETY, CALL LIGHT IN REACH. WILL CTM AND PASS ON TO NIGHT RN.
--- NOTE | 2020-08-16 06:22 | NUR ---
SECURITY OFFICERS AND GUARDS SUMMARY NO ACUTE CHANGES THIS SHIFT. PT AAOX2, PLEASANT AND FOLLOWS DIRECTION BUT IS CONFUSED AND FORGETFUL. REMAINS ON HEPARIN DRIP, RATE INCREASED X1 PER PHARMACY. PT DENIES CP, NO ACUTE EVENTS ON TELEMETRY. O2 SATS >90% ON RA. VSS, WILL CONTINUE TO MONITOR.
[2020-08-16 06:35] LABS: BASOPHILS ABSOLUTE AUTO 0.01 K/mm3 (0.00-0.23); BASOPHILS PERCENT AUTO 0 % (0-2); EOSINOPHILS PERCENT AUTO 0 % (0-6); Hematocrit 42.6 % (37.0-53.0); Hemoglobin 14.5 g/dL (13.5-17.5); IMMATURE GRAN ABSOLUTE AUTO 0.08 K/mm3 (0.00-0.10); IMMATURE GRAN PERCENT AUTO 1 % (0-1); LYMPHOCYTES PERCENT AUTO 8 % (21-46); MONOCYTES ABSOLUTE AUTO 1.08 K/mm3 (0.16-1.47); MONOCYTES PERCENT AUTO 7 % (4-13); Mean Corpuscular HGB 28.4 pg (26.0-34.0); Mean Corpuscular Volume 83 fL (80-100); Mean Platelet Volume 12.2 fL (9.1-12.4); NEUTROPHILS ABSOLUTE AUTO 12.49 K/mm3 (1.96-9.15); NEUTROPHILS PERCENT AUTO 85 % (41-73); Platelet Count 173 K/mm3 (150-400); RDW Coefficient Variation 14.9 % (11.7-14.2); RDW Standard Deviation 45.1 fL (35.1-46.3); Red Blood Cell Count 5.11 M/mm3 (4.30-5.90); White Blood Cell Count 14.76 K/mm3 (4.00-11.30)
[2020-08-16 07:11] LABS: Alanine Aminotransfer (ALT/SGP 222 U/L (12-78); Albumin, Blood 2.2 g/dL (3.4-5.0); Albumin/Globulin Ratio 0.5 (0.8-1.8); Alk Phos 81 U/L (50-136); Anion Gap 9 mmol/L (6-16); Aspartate Aminotrans (AST/SGOT 204 U/L (12-37); Bilirubin, Direct 0.2 mg/dL (0.0-0.3); Bilirubin, Indirect 0.5 mg/dL (0.1-0.7); Bilirubin, Total 0.7 mg/dL (0.1-1.0); Blood Urea Nitrogen 38 mg/dL (8-24); CO2, Blood 25 mmol/L (21-32); Calcium, Blood 8.6 mg/dL (8.5-10.1); Chloride, Blood 105 mmol/L (98-108); Globulin, Blood 4.5 g/dL (2.2-4.0); Glomerular Filtration Rate >60 (60-); Glucose, Blood 111 mg/dL (70-99); Magnesium, Blood 2.4 mg/dL (1.6-2.4); Phosphorus, Blood 2.7 mg/dL (2.5-4.9); Potassium, Blood 4.2 mmol/L (3.5-5.5); Sodium, Blood 139 mmol/L (136-145); Total Protein, Blood 6.7 g/dL (6.4-8.2)
--- NOTE | 2020-08-16 17:49 | NUR ---
SHIFT SUMMARY PATIENT ALERT, PLEASANTLY CONFUSED THIS SHIFT. PATIENT O2 > 90 ON ROOM AIR THIS SHIFT. PATIENT CONTINUES ON IV ANTIBIOTICS AND ANTIVIRAL MEDICATION. PATIENT ATE A MODERATE AMOUNT OF BREAKFAST, WITH NO APPETITE FOR LUNCH OR DINNER. PATIENT LAYING IN BED THROUGHOUT THIS SHIFT WATCHING TELEVISION. PATIENT COOPERATIVE WITH CARE THIS SHIFT.
--- NOTE | 2020-08-17 04:08 | NUR ---
SHIFT SUMMARY PT HAS FLAT AFFECT. PLEASANT AND COOPERATIVE BUT INTERACTS MINIMALLY WITH STAFF. PT WOULD PREFER TO BE LEFT TO REST. PT DENIES NEEDS. DENIES PAIN OR SOB. REMAINED IN BED THIS EVENING. INCONTINENT OF BOTH BOWEL AND BLADDER. ATTENDS IN PLACE. TELEMETRY READING SR 64. PT REMAINS ON RA. VITAL SIGNS STABLE. NO ACUTE CHANGES THIS SHIFT. WILL CONTINUE TO MONITOR.
[2020-08-17 05:24] LABS: BASOPHILS ABSOLUTE AUTO 0.03 K/mm3 (0.00-0.23); BASOPHILS PERCENT AUTO 0 % (0-2); EOSINOPHILS PERCENT AUTO 0 % (0-6); Hematocrit 43.4 % (37.0-53.0); Mean Corpuscular HGB 29.1 pg (26.0-34.0); Mean Corpuscular HGB Conc 34.6 g/dL (31.5-36.5); Mean Corpuscular Volume 84 fL (80-100); Mean Platelet Volume 12.9 fL (9.1-12.4); Platelet Count 181 K/mm3 (150-400); RDW Coefficient Variation 15.6 % (11.7-14.2); Red Blood Cell Count 5.16 M/mm3 (4.30-5.90); White Blood Cell Count 10.39 K/mm3 (4.00-11.30)
[2020-08-17 05:26] LABS: IMMATURE GRAN ABSOLUTE AUTO 0.11 K/mm3 (0.00-0.10); IMMATURE GRAN PERCENT AUTO 1 % (0-1); LYMPHOCYTES ABSOLUTE AUTO 1.14 K/mm3 (0.84-5.20); LYMPHOCYTES PERCENT AUTO 11 % (21-46); MONOCYTES ABSOLUTE AUTO 0.96 K/mm3 (0.16-1.47); MONOCYTES PERCENT AUTO 9 % (4-13); NEUTROPHILS ABSOLUTE AUTO 8.15 K/mm3 (1.96-9.15); NEUTROPHILS PERCENT AUTO 78 % (41-73)
[2020-08-17 05:52] LABS: Alanine Aminotransfer (ALT/SGP 181 U/L (12-78); Albumin, Blood 2.2 g/dL (3.4-5.0); Albumin/Globulin Ratio 0.5 (0.8-1.8); Alk Phos 81 U/L (50-136); Anion Gap 7 mmol/L (6-16); Aspartate Aminotrans (AST/SGOT 112 U/L (12-37); Bilirubin, Total 0.8 mg/dL (0.1-1.0); Blood Urea Nitrogen 38 mg/dL (8-24); Bun/Creatinine Ratio 43.3 (12.0-20.0); CO2, Blood 25 mmol/L (21-32); Calcium, Blood 8.4 mg/dL (8.5-10.1); Chloride, Blood 107 mmol/L (98-108); Creatinine, Blood 0.88 mg/dL (0.60-1.20); Globulin, Blood 4.4 g/dL (2.2-4.0); Glomerular Filtration Rate >60 (60-); Glucose, Blood 100 mg/dL (70-99); Potassium, Blood 4.3 mmol/L (3.5-5.5); Sodium, Blood 139 mmol/L (136-145); Total Protein, Blood 6.6 g/dL (6.4-8.2)
[2020-08-17 13:49] LABS: Gentamicin, Peak 14.9 ug/mL (4.0-8.0)
--- NOTE | 2020-08-17 17:08 | NUR ---
SHIFT SUMMARY PATIENT ALERT TO SELF THIS SHIFT. PATIENT ONLY COMPLIANT WITH CARE WITH ENCOURAGEMENT THIS SHIFT. PATIENT IS FRIENDLY WITH STAFF, YET PREFERS TO LAY IN HIS ROOM WITHOUT INTERUPTION. PATIENT REFUSING MEALS THIS SHIFT, DRANK AN ENSURE WITH ENCOURAGEMENT. PATIENT REMAINS ON ROOM AIR, DENIES SOB THIS SHIFT. PATIENT DENIES PAIN THROUGHOUT THIS SHIFT. PATIENT CURRENTLY LAYING IN BED RESTING.
--- NOTE | 2020-08-18 04:21 | NUR ---
SHIFT SUMMARY PT HAD SEVERAL LARGE LOOSE BM'S THIS EVENING. BOWEL CARE HELD. OTHERWISE NO ACUTE CHANGES THIS SHIFT. PT REMAINED IN BED THROUGHOUT THE NIGHT. UNMOTIVATED. PT WOULD PREFER TO JUST SLEEP AND BE LEFT ALONE. PT REMAINED ON RA. PT HAD SOME HYPOTENSION THIS EVENING, ASYMPTOMATIC. OTHERWISE VSS. PT SLEPT MOST OF THE EVENING. WILL CONTINUE TO MONITOR AND REPORT TO DAY RN.
[2020-08-18 06:36] LABS: Hematocrit 41.8 % (37.0-53.0); Mean Corpuscular HGB 27.8 pg (26.0-34.0); Mean Corpuscular HGB Conc 33.5 g/dL (31.5-36.5); Mean Corpuscular Volume 83 fL (80-100); Platelet Count 212 K/mm3 (150-400); RDW Coefficient Variation 15.1 % (11.7-14.2); RDW Standard Deviation 45.5 fL (35.1-46.3); Red Blood Cell Count 5.04 M/mm3 (4.30-5.90); White Blood Cell Count 10.58 K/mm3 (4.00-11.30)
[2020-08-18 06:52] LABS: Anion Gap 6 mmol/L (6-16); Blood Urea Nitrogen 33 mg/dL (8-24); Bun/Creatinine Ratio 37.1 (12.0-20.0); CO2, Blood 26 mmol/L (21-32); Calcium, Blood 8.3 mg/dL (8.5-10.1); Chloride, Blood 109 mmol/L (98-108); Creatinine, Blood 0.89 mg/dL (0.60-1.20); Gentamicin, Random 1.4 ug/Ml; Glomerular Filtration Rate >60 (60-); Glucose, Blood 90 mg/dL (70-99); Potassium, Blood 4.5 mmol/L (3.5-5.5); Sodium, Blood 141 mmol/L (136-145)
[2020-08-18 09:08] LABS: HBSAG SCREEN Negative (Negative); HEP B CORE AB, TOT Negative (Negative); HEP C VIRUS AB <0.1 (0.0-0.9)
--- NOTE | 2020-08-18 17:51 | NUR ---
SHIFT SUMMARY PATIENT ALERT X1. PATIENT CONTINUES TO BE APATHETIC TO ACTIVITY AND CARE. PATIENT AGREEABLE TO CARE. PATIENT WORKED WITH PHYSICAL THERAPY THIS AFTERNOON AND AMBULATED IN THE ROOM. PATIENT REMAINS ON RA. PATIENT DENIES CP OR SOB THIS SHIFT. PATIENT SITTING UP IN CHAIR THROUGH MUCH OF THIS AFTERNOON. PATIENT CURRENTLY EATING DINNER.
--- NOTE | 2020-08-19 04:12 | NUR ---
SHIFT SUMMARY ADMITTED FOR PNEUMONIA/COVID. DNR CODE. DROPLET/CONTACT:COVID. [facility] IN [facility]. TELEMETRY: NSR @ 81 BPM. PILLS W/WATER, 1 AT A TIME. HE IS INCONTINENT. HE FOLLOWS DIRECTION. 1 ASSIST TO BSC. PLAN IS TO COMPLETE REMDESIVIR AND THEN DC HOME.
[2020-08-19 04:53] LABS: BASOPHILS ABSOLUTE AUTO 0.04 K/mm3 (0.00-0.23); BASOPHILS PERCENT AUTO 0 % (0-2); EOSINOPHILS PERCENT AUTO 0 % (0-6); Hematocrit 46.1 % (37.0-53.0); Hemoglobin 15.7 g/dL (13.5-17.5); IMMATURE GRAN ABSOLUTE AUTO 0.18 K/mm3 (0.00-0.10); IMMATURE GRAN PERCENT AUTO 2 % (0-1); LYMPHOCYTES PERCENT AUTO 12 % (21-46); MONOCYTES ABSOLUTE AUTO 0.65 K/mm3 (0.16-1.47); MONOCYTES PERCENT AUTO 6 % (4-13); Mean Corpuscular HGB 28.9 pg (26.0-34.0); Mean Corpuscular HGB Conc 34.1 g/dL (31.5-36.5); Mean Corpuscular Volume 85 fL (80-100); Mean Platelet Volume 12.5 fL (9.1-12.4); NEUTROPHILS ABSOLUTE AUTO 8.72 K/mm3 (1.96-9.15); NEUTROPHILS PERCENT AUTO 80 % (41-73); Platelet Count 208 K/mm3 (150-400); RDW Coefficient Variation 15.9 % (11.7-14.2); RDW Standard Deviation 46.4 fL (35.1-46.3); Red Blood Cell Count 5.44 M/mm3 (4.30-5.90); White Blood Cell Count 10.89 K/mm3 (4.00-11.30)
[2020-08-19 05:06] LABS: Anion Gap 9 mmol/L (6-16); Blood Urea Nitrogen 33 mg/dL (8-24); Bun/Creatinine Ratio 35.6 (12.0-20.0); CO2, Blood 21 mmol/L (21-32); Calcium, Blood 8.6 mg/dL (8.5-10.1); Chloride, Blood 111 mmol/L (98-108); Creatinine, Blood 0.93 mg/dL (0.60-1.20); Glomerular Filtration Rate >60 (60-); Glucose, Blood 126 mg/dL (70-99); Potassium, Blood 4.7 mmol/L (3.5-5.5); Sodium, Blood 141 mmol/L (136-145)
--- NOTE | 2020-08-19 18:38 | NUR ---
SHIFT SUMMARY: NO ACUTE EVENTS. DENIED PAIN, CHEST DISCOMFORT, SOB. IS REFUSING TO WORK WITH THERAPY, TOOK MUCH ENCOURAGEMENT TO GET HIM INTO A CHAIR FOR MEALS. HE IS NOT EATING, STATES HE'S NOT HUNGRY, BUT IS DRINKING ENSURE. ABLE TO TAKE PILLS WITH WATER. INCONTINENT OF B&B, WEARING ATTENDS. HAS 1 MORE DOSE OF REMDESIVIR TOMORROW. ON ROOM AIR, IN NO DISTRESS. ENTIRE FAMILY HAS COVID, MAY NOT BE ABLE TO CARE FOR HIM AT D/C.
--- NOTE | 2020-08-20 06:27 | NUR ---
SHIFT SUMMARY NO ACUTE CHANGES SINCE ASSUMING CARE, NO C/O ANY KIND, PT UP IN CHAIR AT SHIFT START, AMBULATED TO BED W/1 ASSIST, FWW & GAIT BELT, SLEPT T/O THE NIGHT, STILL SLEEPING AT THIS TIME, CALL LIGHT IN REACH, BED ALARM ACTIVE, WILL CONT TO MONITOR UNTIL REPORT GIVEN TO DAY RN.
[2020-08-20] MEDS ORDERED: ALBU2.5V5 INH (11:25)
[2020-08-20] MEDS ORDERED: AMLO5 PO (11:26)
[2020-08-20] MEDS ORDERED: CLOP75 PO (11:26)
[2020-08-20] MEDS ORDERED: DEXA6 PO (11:27)
[2020-08-20] MEDS ORDERED: K-Phos Origina500 MG PO (11:28)
--- NOTE | 2020-08-20 12:40 | NUR ---
PATIENT DISCHARGED TO [facility] COVID UNIT. TELEPHONE REPORT GIVEN TO CYN VELIZ AT 1145. IV SL AND POWERGLIDE IV REMOVED WITHOUT INCIDENT. HAS ALL BELONGINGS, OFF UNIT VIA W/C TRANSPORT AT 1235.
== END 2020-08-20 12:40 | DRG 177 ==
LOC: ER 19:03 → MEDS 08-14 02:39
PROVIDERS: Family Medicine; Pharmacist; Physician Assistant; ADMIT Internal Medicine
PROC: 3E0433Z Introduction of Anti-inflammatory into Central Vein, Percutaneous Approach (ICD-10-PCS; principal; 2020-08-14)
PROC: XW043E5 Introduction of Remdesivir Anti-infective into Central Vein, Percutaneous Approach, New Technology Group 5 (ICD-10-PCS; 2020-08-14)
DX: U07.1 COVID-19 (principal); J12.82 Pneumonia due to coronavirus disease 2019; I21.A1 Myocardial infarction type 2; E87.1 Hypo-osmolality and hyponatremia; N39.0 Urinary tract infection, site not specified; Z66 Do not resuscitate; Z51.5 Encounter for palliative care; E78.5 Hyperlipidemia, unspecified; E87.6 Hypokalemia; F03.90 Unspecified dementia, unspecified severity, without behavioral disturbance, psychotic disturbance, mood disturbance, and anxiety; I10 Essential (primary) hypertension; I25.10 Atherosclerotic heart disease of native coronary artery without angina pectoris; I25.2 Old myocardial infarction; K21.9 Gastro-esophageal reflux disease without esophagitis; Z85.51 Personal history of malignant neoplasm of bladder; Z87.891 Personal history of nicotine dependence; D64.9 Anemia, unspecified
CPT/HCPCS: 36415; 51701; 71045; 80048; 80053; 80069; 80170; 81001; 82248; 83735; 84100; 84145; 84484; 85025; 85027; 85610; 85730; 86317; 86704; 86708; 86803; 87086; 87340; 93005; 93010; 93306; 94760; 94762; 97110; 97116; 97162; 97165; 97530; 99285-25; A9270; C1751; J0696; J1580; J1644; J1650; J7050